=== PATIENT | female | born 1940 | race Caucasian/White ===

== ENCOUNTER 2016-07-11 16:32 | Inpatient (IN) | payer MEDICARE, OTHER ==
--- NOTE | ~2016-07-11 | CN ---
Consultation Report [facility] [address] [place]. [address] NAME: MIREYA JALLOH : 40 STATUS : ADM IN PAT#: [id number] AGE: 75 ADM/REG DATE : 07/11/16 MR#: [id number] REPORT SERV DATE: 07/12/16 DICTATED BY: DULCE ESPITIA DATE: 07/12/16 REPORT STATUS : Draft TRANSCRIBED BY: MODL DATE: 07/12/16 GI CONSULTATION DATE OF CONSULTATION: 07/12/2016 REASON FOR CONSULTATION: Evaluation and management of GI bleeding, acute blood loss anemia. HISTORY OF PRESENT ILLNESS: Ms. Jalloh is a 75-year-old female patient, known to Dr. Kian Benson in the outpatient setting, who presented to [facility] with a chief complaint of weakness and dizziness. She was found to have a hemoglobin of 5.6. She was just in the hospital at [facility] in April of this year. Hemoglobin on discharge there was 8.9. She was seen there by Dr. Joseph, and she underwent an upper endoscopy secondary to reports of epigastric abdominal pain. Findings on that exam showed nonbleeding esophageal ulcers, Billroth I anastomosis and the anastomosis was characterized by ulcerations, which he biopsied. She had multiple duodenal ulcers with clean base, which were biopsied. She was advanced to a soft diet and was subsequently discharged. She had called Dr. Benson's office last Sunday complaining of epigastric abdominal pain. He instructed her to decrease her diet and if her symptoms persisted over the weekend, to come in to the office. She did not come in, her symptoms persisted, she called yesterday, and he directed her to come to the emergency room for further evaluation. Hemoglobin was 5.6 on admission. Presently, she has been transfused two units of packed red blood cells. No recheck is available at this time. I have discussed with her we will plan on EGD as well as colonoscopy to be done tomorrow. Her last colonoscopy was actually done in 2014. Her EGD done in April showed active duodenitis with ulceration, no H pylori, no viral inclusions were seen on that pathology. Last colonoscopy was done in 12/2014. Findings on that exam showed a patent end-to-side ileocolonic anastomosis, otherwise normal exam. I have discussed with the patient we will plan on pursuing EGD as well as colonoscopy tomorrow. Risks, benefits, alternatives, and complications were detailed for her to include, but not limited to risk of bleeding, perforation, infection, reaction to medications, as well as cardiac and pulmonary side effects. She is agreeable to proceed. 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 PAST SURGICAL HISTORY: Gastrectomy, colon resection, back surgery, left knee surgery. SOCIAL HISTORY: Single. Lives independently. No alcohol. No current tobacco. No illicits. ALLERGIES: TO SULFA AND EPINEPHRINE. Consultation Report [place] [id number] [facility] [place]. [address] NAME: MIREYA JALLOH : 40 STATUS : ADM IN [facility]#: [id number] AGE: 75 ADM/REG DATE : 07/11/16 MR#: [id number] REPORT SERV DATE: 07/12/16 DICTATED BY: DULCE ESPITIA DATE: 07/12/16 REPORT STATUS : Draft TRANSCRIBED BY: JEROME DATE: 07/12/16 FAMILY HISTORY: Noncontributory from a GI standpoint. HOME MEDICATIONS: ProAir HFA, Klonopin, Benadryl, flecainide, Neurontin, Lidoderm patch, Pamelor, Protonix, and Carafate. REVIEW OF SYSTEMS: A 10-point review of systems has been obtained with pertinent positives being addressed in the history of present illness. PERTINENT LABORATORY DATA: Sodium 138, potassium 4.4, BUN is 21, creatinine 0.49. White count 4.3, hemoglobin 5.6, hematocrit 19.1, platelet count 252. PHYSICAL EXAMINATION: VITAL SIGNS: Temperature 98.1, pulse 101, respirations 17, and blood pressure 128/76. NEURO: Reveals an alert, thin, and frail-appearing female, resting in bed with no focal deficits. GENERAL: Cooperative, in no apparent distress. Awake, alert, and oriented x3. HEAD, EARS, EYES, NOSE, AND THROAT: Anicteric. Pupils equal, round, reactive to light and accommodation. Normocephalic and atraumatic. NECK: No JVD. No palpable nodes. CHEST: She has a right upper chest Port-A-Cath in use. LUNGS: Diminished throughout with normal respiratory effort exhibited. CARDIOVASCULAR SYSTEM: Irregular rate and rhythm. ABDOMEN: Mildly distended in the lower quadrant. She has epigastric tenderness to palpation without rebound or guarding. She also has a lower incisional hernia that reduces. EXTREMITIES: No edema. Normal distal pulses. SKIN: Warm, dry, and intact. ASSESSMENT: 1. Acute blood loss anemia with a history of chronic anemia, last noted hemoglobin in 04/2016 of 8.9. 2. Epigastric abdominal pain with a history of peptic ulcer disease, status post Billroth I. 3. Paroxysmal atrial fibrillation, no anticoagulants. PLAN: 1. Transfuse. 2. EGD and colonoscopy on 07/13. 3. Check a KUB. 4. Clear liquid diet and n.p.o. after midnight. Other recommendations to follow endoscopy. DG/MODL Consultation Report [address] [place]. [place]. [address] NAME: MIREYA JALLOH : 40 STATUS : ADM IN [facility]#: [id number] AGE: 75 ADM/REG DATE : 07/11/16 MR#: [id number] REPORT SERV DATE: 07/12/16 DICTATED BY: DULCE ESPITIA DATE: 07/12/16 REPORT STATUS : Draft TRANSCRIBED BY: JEROME DATE: 07/12/16 RG Anand / [id number] CC: Thiago De La Rosa DO
--- NOTE | ~2016-07-11 | EGD ---
EGD REPORT [facility] [address] [place]. [address] NAME: MIREYA JALLOH : 40 STATUS : ADM IN PAT#: [id number] AGE: 75 ADM/REG DATE : 07/11/16 MR#: [id number] REPORT SERV DATE: 07/14/16 DICTATED BY: DIAZ MARTINEZ DATE: 07/14/16 REPORT STATUS : Draft TRANSCRIBED BY: [facility] DATE: 07/14/16 Endoscopy Center Patient Name: Mireya Jalloh Date of : 1940 Attending MD: DIAZ MARTINEZ MD Procedure Date No Time: 07/14/2016 Procedure: Colonoscopy Indications: Iron deficiency anemia secondary to chronic blood loss Referring MD: Eliseo Knott MD Medicines: Monitored Anesthesia Care Complications: No immediate complications. Estimated blood loss: None. Procedure: Pre-Anesthesia Assessment: - ASA Grade Assessment: III - A patient with severe systemic disease. After I obtained informed consent, the scope was passed under direct vision. Throughout the procedure, the patient's blood pressure, pulse, and oxygen saturations were monitored continuously. The CF [id number] was introduced through the anus and advanced to the ileocolonic anastomosis. The colonoscopy was performed without difficulty. The patient tolerated the procedure well. The quality of the bowel preparation was good. Findings: The perianal and digital rectal examinations were normal. Pertinent negatives include normal sphincter tone and no palpable rectal lesions. The entire examined colon appeared normal on direct and retroflexion views. Impression: - The entire examined colon is normal on direct and retroflexion views. Recommendation: - Return patient to hospital [facility] for possible discharge same day. - Soft diet. Procedure Code(s): --- Professional --- 65635, Colonoscopy, flexible, proximal to splenic flexure; diagnostic, with or without collection of specimen(s) by brushing or washing, with or without colon decompression (separate procedure) Diagnosis Code(s): --- Professional --- D50.0, Iron deficiency anemia secondary to blood loss (chronic) EGD REPORT [address] [address] NAME: MIREYA JALLOH : 40 STATUS : ADM IN [facility]#: [id number] AGE: 75 ADM/REG DATE : 07/11/16 MR#: [id number] REPORT SERV DATE: 07/14/16 DICTATED BY: DIAZ MARTINEZ DATE: 07/14/16 REPORT STATUS : Draft TRANSCRIBED BY: [facility] DATE: 07/14/16 CPT copyright 2013 [employer]. All rights reserved. The codes documented in this report are preliminary and upon advertising sales consultant review may be revised to meet current compliance requirements. Diaz Martinez MD DIAZ MARTINEZ MD 07/14/2016 8:57 AM This report has been signed electronically. Number of Addenda: 0 Note Initiated On: 07/14/2016 8:20 AM Scope Withdrawal Time 0 hours 0 minutes 0 seconds
--- NOTE | ~2016-07-11 | DS ---
Discharge Summary [facility] [address] [place]. [address] NAME: MIREYA JALLOH : 40 STATUS : DIS IN PAT#: [id number] AGE: 75 ADM/REG DATE : 07/11/16 MR#: [id number] REPORT SERV DATE: 07/19/16 DICTATED BY: NADIYA LEON DATE: 07/19/16 REPORT STATUS : Draft TRANSCRIBED BY: MODL DATE: 07/19/16 ADMISSION DATE: 07/11/2016 DISCHARGE DATE: 07/19/2016 CONSULTANTS: Dr. White, Gastroenterology. Dr. Blood, Neurology. Dr. Bruno Zuluaga and Dr. Nemesio Rojas, Cardiology. DISCHARGE DIAGNOSES: 1. Upper gastrointestinal bleed due to esophagitis and jejunal ulcer. 2. Acute blood loss anemia. 3. Episode of wide-complex tachycardia. 4. Chronic atrial tachycardia. 5. Previous multiple peptic ulcers, treated with Billroth I anastomosis. 6. Chronic back pain. 7. Chronic constipation. 8. History of peripheral neuropathy with gait ataxia. HISTORY: This patient presented to the emergency room at [facility] complaining of weakness and some unsteadiness. She denied any falls. She is noted to be anemic with guaiac-positive stool. She was referred to our team for inpatient care. The patient was given some transfusion of packed red cells as her initial hemoglobin was 5.6. After the 2 units of packed red cells, her hemoglobin improved. It is stable at discharge at 8.5. She had a mild thrombocytopenia, which was felt to be due to consumption from her acute anemia and blood loss. Her iron studies in April showed a low serum iron of 32, a low percent iron saturation of 14, and a TIBC of 295. Her B12 level is at lower end of normal at 357. Currently, her folic acid was low at 3.8. Her ferritin is 21. The patient states she does not tolerate oral iron. We are recommending that she get her first dose of Ferrlecit iron replacement here and then follow up with her early intervention specialist, Dr. Troncoso for ongoing iron replacement intravenously as she has had in the past. She was seen by GI. She normally sees Dr. Benson in the office. During this hospitalization, his partner, Dr. White saw the patient on 07/13/2016, did an EGD showing grade C reflux esophagitis, Junel ulcer, a Billroth I anastomosis, a large amount of food in the stomach. Colonoscopy on that same date revealed a very poor preparation. Repeat EGD on 07/14/2016 showed grade C esophagitis, jejunal ulcer. Colonoscopy repeat showed normal findings. GI recommended Carafate, Protonix b.i.d., and follow up with them in the office. The patient has a history of atrial tachycardia. While she was here, she was having some wider complex atrial tachycardia. Cardiology, Dr. Zuluaga saw the patient, she was noted to have some nonsustained polymorphic ventricular tachycardic episodes. As a result, Cardiology decided to take her off flecainide, which they have had her on chronically. Echocardiogram, 07/13/2016, showed normal left ventricular size and ejection fraction of 55%, left atrium 3.9 cm, [id number] eccentric mitral regurgitation. Negative bubble study. Chest pain, cardiac enzymes were normal. Cardiology want her on a beta-brandie and they want to take her off any proarrhythmic drugs, such as nortriptyline and they want to decrease dosing of her gabapentin and they had marine engine machinist apprentice, Dr. Rojas see the Discharge Summary [address] [address] NAME: MIREYA JALLOH : 40 STATUS : DIS IN PAT#: [id number] AGE: 75 ADM/REG DATE : 07/11/16 MR#: [id number] REPORT SERV DATE: 07/19/16 DICTATED BY: NADIYA LEON DATE: 07/19/16 REPORT STATUS : Draft TRANSCRIBED BY: JEROME DATE: 07/19/16 patient. She had no clear-cut syncope, but weakness episodes probably related to her hypotension related to her anemia. He recommended staying off flecainide and nortriptyline and staying off Benadryl and reducing gabapentin and putting in a loop recorder. Loop recorder was implanted on 07/18/2016. He plans to see her back in the office in followup. The patient is ambulating up and down the yu using her walker. She is felt to benefit from outpatient PT. Case management is arranging that with PT facility close to her home. She already has a walker. HOME MEDICATIONS: Gabapentin reduced to 400 mg q.i.d., previously 600 mg q.i.d.; metoprolol 25 mg b.i.d.; Protonix 40 mg b.i.d.; Carafate 1 g a.c. and h.s.; Klonopin 0.5 mg daily p.r.n. anxiety; Tylenol 650 q.6 hours p.r.n. pain or fever; Gilmer 5/325 one t.i.d. p.r.n. chronic back pain; melatonin 6 mg at bedtime [id number]-[id number] p.r.n.; Senokot two daily p.r.n. She has a ProAir HFA that she uses p.r.n., folic acid 1 mg daily, vitamin B12 1000 mcg p.o. daily. She is to follow up with PCP, Eliseo Mckoy in one to two weeks. Linux Programmer, Dr. Bairon Troncoso for ongoing iron infusions. Cardiology/Wrapper Sorter, Dr. Rojas on 08/25/2016 at 1345 hours. GI, Dr. Benson in three to four weeks. I spent 38 minutes today with the patient and discharge planning. Pain management with [facility]. RSG/MODL Nadiya Leon M.D. / [id number] CC: Thiago Aplpe DO David Wendt, M.D. Sumeet Bhushan, M.D. Larry Schlabach, M.D.
--- NOTE | ~2016-07-11 | CN ---
Consultation Report [facility] [address] [place]. [address] NAME: MIREYA JALLOH : 40 STATUS : ADM IN PAT#: [id number] AGE: 75 ADM/REG DATE : 07/11/16 MR#: [id number] REPORT SERV DATE: 07/12/16 DICTATED BY: VIRGIE BLOOD DATE: 07/12/16 REPORT STATUS : Draft TRANSCRIBED BY: MODL DATE: 07/12/16 NEUROLOGICAL EVALUATION-CONSULTATION DATE OF CONSULTATION: 07/12/2016 REASON FOR EVALUATION: Episodes of falling, ataxia, possible stroke, history of GI bleeding. HISTORY OF PRESENT ILLNESS: This is a pleasant 75-year-old female with known history of multiple medical problems, which include history of severe anemia related to recurrent GI bleeding, past history of partial gastrectomy and past history of multiple lumbosacral and cervical spine surgeries, who was admitted with complaints of poor balance and recurrent episodes of falling. The patient stated that upon standing up, she appeared unsteady and was not able to catch her balance and had fallen. This occurred several times, unrelated to the change of body position while the patient was attempting to walk. Although the patient bruised her legs, she denied hitting her head or having any other problems related to her falling. The patient denied prior history of CVA or TIA. The patient stated that she has been in chronic pain secondary to lumbosacral spine multiple surgeries she had gone through in the past several years. The patient stated that she has lost weight and although her appetite was poor, she was not able to gain her weight back and has been feeling "run down." The patient has had difficulty sleeping as a result of having chronic pain. The patient's records indicate that she was hospitalized in April of this year with multiple ulcers of esophageal and duodenal, documented on endoscopy testing. The patient at that time has been taking nonsteroidal anti-inflammatory medications to control her pain. She was noted to have anemia, which was noted to be "multifactorial." During this admission, the patient's hemoglobin was 5.6, hematocrit 19.1, WBC count 4.3. The patient had a history of removal of infected hardware during one of the surgeries for her lumbosacral spine related problems. SOCIAL HISTORY: The patient denied smoking and denied use of alcohol. FAMILY HISTORY: Negative for history of stroke or any other neurological problems and no history of peripheral neuropathy. REVIEW OF SYSTEMS: The patient stated that she has had a generalized weakness, which affected her arms and legs. However, she did not feel that her falling was related to having weakness, especially involving her legs. The patient stated that she did not have any difficulty controlling her bowel or bladder. The rest of the review of systems was negative for abdominal pain. Negative for nausea, vomiting, diarrhea. There is no recent history of infections or exposure to anyone with infectious illnesses. No recent history of travel outside of this country. From neurological standpoint, as mentioned above, the patient denied prior history of CVA or TIA. Denied history of headaches. Denied double vision, difficulty with her chewing, swallowing or with her speech. Denied weakness and numbness, except for numbness involving her feet and generalized weakness. No focal complaints were elicited. Consultation Report [facility] [address] [facility] [place]. [address] NAME: MIREYA JALLOH : 40 STATUS : ADM [facility]#: [id number] AGE: 75 ADM/REG DATE : 07/11/16 MR#: [id number] REPORT SERV DATE: 07/12/16 DICTATED BY: VIRGIE BLOOD DATE: 07/12/16 REPORT STATUS : Draft TRANSCRIBED BY: JEROME DATE: 07/12/16 PHYSICAL EXAMINATION: GENERAL: The patient was pleasant and cooperative, did not appear in acute distress. Inspection of the patient's spine revealed severe kyphosis with area of bony prominence in the right midthoracic region, which as per the patient is related to her past surgeries. VITAL SIGNS: Show blood pressure of 132/80, pulse was 94, respirations 16, and temperature was 97.8. HEAD AND NECK: Showed her to be normocephalic. There was no evidence of trauma. Auscultation of the neck showed no evidence of bruits and no JVD, no thyromegaly or lymphadenopathy detected. Neck was supple. There was no Kernig or Brudzinski. Cervical range of motion was not impaired. CHEST: Symmetrical. LUNGS: Clear to auscultation. HEART: Regular S1 and S2. Borderline sinus tachycardia. ABDOMEN: Soft and nontender. Well-healing postsurgical scar was noted in the left lower abdomen, some redness and subacute healing noted. EXTREMITIES: Showed no clubbing or cyanosis. There was no peripheral edema. SKIN: Showed numerous ecchymotic areas in the tibial regions bilaterally as per the patient secondary to her recent falling. Peripheral pulses were intact. NEUROLOGIC: The patient was alert and oriented to self, time, and place. Her mental status exam was entirely normal. Speech was fluent. There was no evidence of aphasia or dysarthria. Thought content and mood appeared appropriate, although the patient appears slightly anxious. She was cooperative and did not appear in acute distress. Cranial nerve examination II through XII: Visual juarez on confrontation were intact. Funduscopic exam showed no evidence of papilledema, hemorrhages, or exudates. Extraocular movements were full. There was no nystagmus. No limitation of upward or downward gaze was noted. Facial sensation, muscles of mastication, muscles of facial expression showed no evidence of asymmetry or weakness. Lower cranial nerves were intact. Tongue was midline. No atrophy or fibrillations were noted. Palate elevated symmetrically. Sternocleidomastoid and trapezius muscles were normal. Shoulder shrug was normal. Motor: Muscle bulk was decreased diffusely, although no significant atrophy was noted. No fasciculations were observed. Strength appeared intact, 5-/5 throughout. Deep tendon reflexes were 1/2 in the upper extremities, 1/2 in the left knee and 0/2 in the right knee, 0/2 at both ankles. Sensory exam showed stocking distribution of decreased vibration, pinprick, and light touch in both lower extremities symmetrically. No sensory level was noted under the torso. Romberg test was positive, the patient was falling backwards. Cerebellar exam on finger-to- nose showed very minimal tremor, which appeared to be essential tremor, left slightly greater than the right on dciqmf-ol-yymn, and a definite ataxia noted on [id number]-ew-[id number]. The patient's gait was wide based, appeared to be antalgic, and difficult to test for ataxia as the patient did not perform more than few steps and returned back to bed. She required two people to help her with ambulation. LABORATORY STUDIES: Sodium 138, potassium 4.4, BUN 21, creatinine 0.94, glucose 110, calcium 7.9, magnesium 1.8. WBC count 4.3, hemoglobin 5.6, hematocrit 19.1, platelet count 252,000. IMPRESSION: Consultation Report [facility] [address] [place]. [address] NAME: MIREYA JALLOH : 40 STATUS : ADM IN PAT#: [id number] AGE: 75 ADM/REG DATE : 07/11/16 MR#: [id number] REPORT SERV DATE: 07/12/16 DICTATED BY: VIRGIE BLOOD DATE: 07/12/16 REPORT STATUS : Draft TRANSCRIBED BY: MODL DATE: 07/12/16 1. Recurrent episodes of falling, most likely multifactorial, secondary to possible orthostatic hypotension related to the patient's severe anemia and blood loss. The factor contributing to the patient's episodes of falling is underlying peripheral neuropathy, which appears to be mainly sensory symmetrical peripheral neuropathy affecting her lower extremities and affecting the patient's balance. 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 Rule out vitamin B12 and folate deficiency. The patient has history of partial gastrectomy, which may be responsible for her malabsorption of vitamins. 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 2. History of paroxysmal atrial fibrillation. Rule out recurrent atrial fibrillation causing episodes of hypotension and falling. 3. The patient has increased risk of a stroke. 4. History of gastric and duodenal ulcers. 5. Persistent anemia. Recommend for her to obtain laboratory studies, serum vitamin B12 and folate level and supplement the deficiency. If the patient's B12 level is below 400, would consider it to be low for this patient. 1 mg IM daily while the patient is here of B12 and 1 mg of folate p.o. daily until the patient is released to go home. Continue folic acid p.o. supplement and then weekly, transferring to monthly IM B12 supplement, would recommend to continue for life. If the patient's symptoms worsen or continue, would obtain MRI of the brain and cervical spine, brain to rule out any strokes affecting posterior circulation and MRI of the cervical spine to rule out spinal stenosis which may contribute to the patient's leg weakness, poor balance, and subsequent episodes of falling. The patient has increased risk of falling and injury. I would recommend to address this prior to her discharge from the hospital. PT and OT to evaluate and treat the patient. Continue PT on outpatient basis. Pain management for chronic pain. Consider adding Neurontin if the patient has not been on it previously and to help manage her chronic pain. At present, would hold the patient's aspirin or any other anticoagulation until her anemia is corrected. The patient, however, may need anticoagulation if she has recurrent atrial fibrillation. Thank you for allowing us to participate in this patient's care. MARSHALL/JEROME Virgie Blood MD / [id number] CC: Thiago De La Rosa DO
--- NOTE | ~2016-07-11 | EGD ---
EGD REPORT [facility] [address] [place]. [address] NAME: MIREYA JALLOH : 40 STATUS : ADM IN PAT#: [id number] AGE: 75 ADM/REG DATE : 07/11/16 MR#: [id number] REPORT SERV DATE: 07/13/16 DICTATED BY: DIAZ MARTINEZ DATE: 07/13/16 REPORT STATUS : Draft TRANSCRIBED BY: [facility] DATE: 07/13/16 Endoscopy Center Patient Name: Mireya Jalloh Date of : 1940 Attending MD: DIAZ MARTINEZ MD Procedure Date No Time: 07/13/2016 Procedure: Colonoscopy Indications: Anemia Referring MD: Eliseo Knott MD Medicines: Monitored Anesthesia Care Complications: No immediate complications. Estimated blood loss: None. Procedure: Pre-Anesthesia Assessment: - ASA Grade Assessment: III - A patient with severe systemic disease. After I obtained informed consent, the scope was passed under direct vision. Throughout the procedure, the patient's blood pressure, pulse, and oxygen saturations were monitored continuously. The CF [id number] was introduced through the anus with the intention of advancing to the cecum. The scope was advanced to the rectum before the procedure was aborted. Medications were given. The colonoscopy was technically difficult and complex due to inadequate bowel prep. The patient tolerated the procedure well. The quality of the bowel preparation was unsatisfactory. Findings: Perianal examination was normal. Copious quantities of solid stool was found in the rectum, precluding visualization. The procedure was aborted as it appeared that the patient had not completed the bowel prep. Impression: - Preparation of the colon was unsatisfactory. - Stool in the rectum. Recommendation: - Repeat colonoscopy tomorrow because the bowel preparation was poor. Procedure Code(s): --- Professional --- 01245, 53, Colonoscopy, flexible, proximal to splenic flexure; diagnostic, with or without collection of specimen(s) by brushing or washing, with or without colon decompression (separate procedure) Diagnosis Code(s): --- Professional --- EGD REPORT [facility] [address] [place]. [address] NAME: MIREYA JALLOH : [birth year] STATUS : ADM IN [facility]#: [id number] AGE: 75 ADM/REG DATE : 07/11/16 MR#: [id number] REPORT SERV DATE: 07/13/16 DICTATED BY: DIAZ MARTINEZ DATE: 07/13/16 REPORT STATUS : Draft TRANSCRIBED BY: [employer] DATE: 07/13/16 D64.9, Anemia, unspecified CPT copyright 2013 [employer]. All rights reserved. The codes documented in this report are preliminary and upon walking dragline operator review may be revised to meet current compliance requirements. Diaz Martinez MD DIAZ MARTINEZ MD 07/13/2016 9:46 AM This report has been signed electronically. Number of Addenda: 0 Note Initiated On: 07/13/2016 9:03 AM Scope Withdrawal Time 0 hours 0 minutes 0 seconds [address] [id number]
--- NOTE | ~2016-07-11 | EGD ---
EGD REPORT [facility] [address] [place]. [address] NAME: MIREYA JALLOH : [birth year] STATUS : ADM IN PAT#: [id number] AGE: 75 ADM/REG DATE : 07/11/16 MR#: [id number] REPORT SERV DATE: 07/13/16 DICTATED BY: DIAZ MARTINEZ DATE: 07/13/16 REPORT STATUS : Draft TRANSCRIBED BY: [facility] DATE: 07/13/16 Endoscopy Center Patient Name: Mireya Jalloh Date of : 1940 Attending MD: DIAZ MARTINEZ MD Procedure Date No Time: 07/13/2016 Procedure: Upper GI endoscopy Indications: Iron deficiency anemia secondary to chronic blood loss Referring MD: Eliseo Knott MD Medicines: Monitored Anesthesia Care Complications: No immediate complications. Estimated blood loss: None. Procedure: Pre-Anesthesia Assessment: - ASA Grade Assessment: III - A patient with severe systemic disease. After obtaining informed consent, the endoscope was passed under direct vision. Throughout the procedure, the patient's blood pressure, pulse, and oxygen saturations were monitored continuously. The GIF H190 [id number] was introduced through the mouth, and advanced to the second part of duodenum. The upper GI endoscopy was accomplished without difficulty. The patient tolerated the procedure well. Findings: LA Grade C (one or more mucosal breaks continuous between tops of 2 or more mucosal folds, less than 75% circumference) esophagitis with no bleeding was found in the entire esophagus. Evidence of a Billroth I anastomosis was found in the gastric antrum. The anastomosis was characterized by ulceration. Few non-bleeding superficial ulcers with no stigmata of bleeding were found distal to the gastrojejunal anastomosis. The largest lesion was 6 mm in largest dimension. A large amount of food (residue) was found in the gastric fundus. The exam was otherwise without abnormality. Impression: - LA Grade C reflux esophagitis. - A Billroth I anastomosis was found, anastomosis characterized by ulceration. - Jejunal ulcer with clean base. - A large amount of food (residue) in the stomach. - The examination was otherwise normal. Recommendation: - Perform a colonoscopy today. - Protonix BID - Zantac [facility] EGD REPORT [address] [address] NAME: MIREYA JALLOH : [birth year] STATUS : ADM IN [facility]#: [id number] AGE: 75 ADM/REG DATE : 07/11/16 MR#: [id number] REPORT SERV DATE: 07/13/16 DICTATED BY: DIAZ MARTINEZ DATE: 07/13/16 REPORT STATUS : Draft TRANSCRIBED BY: [employer] DATE: 07/13/16 - Carafate QID Procedure Code(s): --- Professional --- 48669, Esophagogastroduodenoscopy, flexible, transoral; diagnostic, including collection of specimen(s) by brushing or washing, when performed (separate procedure) Diagnosis Code(s): --- Professional --- K21.0, Gastro-esophageal reflux disease with esophagitis K28.9, Gastrojejunal ulcer, unspecified as acute or chronic, without hemorrhage or perforation D50.0, Iron deficiency anemia secondary to blood loss (chronic) CPT copyright 2013 [employer]. All rights reserved. The codes documented in this report are preliminary and upon call out operator review may be revised to meet current compliance requirements. Diaz Martinez MD DIAZ MARTINEZ MD 07/13/2016 9:36 AM This report has been signed electronically. Number of Addenda: 0 Note Initiated On: 07/13/2016 9:02 AM Scope Withdrawal Time 0 hours 0 minutes 0 seconds [address] [place] [address]
--- NOTE | ~2016-07-11 | EGD ---
EGD REPORT [facility] [address] [place]. [address] NAME: MIREYA JALLOH : 40 STATUS : ADM IN PAT#: [id number] AGE: 75 ADM/REG DATE : 07/11/16 MR#: [id number] REPORT SERV DATE: 07/14/16 DICTATED BY: DIAZ MARTINEZ DATE: 07/14/16 REPORT STATUS : Draft [facility]ANSCRIBED BY: [facility] DATE: 07/14/16 Endoscopy Center Patient Name: Mireya Jalloh Date of : 1940 Attending MD: DIAZ MARTINEZ MD Procedure Date No Time: 07/13/2016 Procedure: Upper GI endoscopy Indications: Iron deficiency anemia secondary to chronic blood loss Referring MD: Eliseo Knott MD Medicines: Monitored Anesthesia Care Complications: No immediate complications. Estimated blood loss: None. Procedure: Pre-Anesthesia Assessment: - ASA Grade Assessment: III - A patient with severe systemic disease. After obtaining informed consent, the endoscope was passed under direct vision. Throughout the procedure, the patient's blood pressure, pulse, and oxygen saturations were monitored continuously. The GIF H190 [id number] was introduced through the mouth, and advanced to the second part of duodenum. The upper GI endoscopy was accomplished without difficulty. The patient tolerated the procedure well. Findings: LA Grade C (one or more mucosal breaks continuous between tops of 2 or more mucosal folds, less than 75% circumference) esophagitis with no bleeding was found in the entire esophagus. Evidence of a Billroth I anastomosis was found in the gastric antrum. The anastomosis was characterized by ulceration. Few non-bleeding superficial ulcers with no stigmata of bleeding were found distal to the gastrojejunal anastomosis. The largest lesion was 6 mm in largest dimension. A large amount of food (residue) was found in the gastric fundus. The exam was otherwise without abnormality. Impression: - LA Grade C reflux esophagitis. - A Billroth I anastomosis was found, anastomosis characterized by ulceration. - Jejunal ulcer with clean base. - A large amount of food (residue) in the stomach. - The examination was otherwise normal. Recommendation: - Perform a colonoscopy today. - Protonix BID - Zantac [facility] EGD REPORT [address] [address] NAME: MIREYA JALLOH : [birth year] STATUS : ADM IN [facility]#: [id number] AGE: 75 ADM/REG DATE : 07/11/16 MR#: [id number] REPORT SERV DATE: 07/14/16 DICTATED BY: DIAZ MARTINEZ DATE: 07/14/16 REPORT STATUS : Draft TRANSCRIBED BY: [email or web address] DATE: 07/14/16 - Carafate QID Procedure Code(s): --- Professional --- 00727, Esophagogastroduodenoscopy, flexible, transoral; diagnostic, including collection of specimen(s) by brushing or washing, when performed (separate procedure) Diagnosis Code(s): --- Professional --- K21.0, Gastro-esophageal reflux disease with esophagitis K28.9, Gastrojejunal ulcer, unspecified as acute or chronic, without hemorrhage or perforation D50.0, Iron deficiency anemia secondary to blood loss (chronic) CPT copyright 2013 [employer]. All rights reserved. The codes documented in this report are preliminary and upon staking press operator review may be revised to meet current compliance requirements. Diaz Martinez MD DIAZ MARTINEZ MD 07/13/2016 9:36 AM This report has been signed electronically. Number of Addenda: 0 Note Initiated On: 07/13/2016 9:02 AM Scope Withdrawal Time 0 hours 0 minutes 0 seconds [address] [place] [address]
--- NOTE | ~2016-07-11 | HP ---
History And Physical [place] [address] [facility] [place]. [address] NAME: MIREYA JALLOH : [birth year] STATUS : ADM IN [facility]#: [id number] AGE: 75 ADM/REG DATE : 07/11/16 MR#: [id number] REPORT SERV DATE: 07/11/16 DICTATED BY: JARVIS DAS DATE: 07/11/16 REPORT STATUS : Draft TRANSCRIBED BY: MODL DATE: 07/11/16 DATE OF ADMISSION: 07/11/2016 CHIEF COMPLAINT: Weakness and dizziness. HISTORY OF PRESENT ILLNESS: The patient is a 75-year-old female with past medical history of peptic ulcer disease with multiple admissions for anemia, acute on chronic blood loss anemia secondary to bleeding ulcers, has history of chronic pain dependence on narcotics but does not have any currently, is to have new appointment reported tomorrow but today in acute setting, was complaining of increased dizziness and weakness and in addition was incidentally found to have mild changing of her speech with occasional slurring. Symptoms occurred this morning, unable to determine which time. Symptoms have been intermittent as the patient kind of somewhat goes on and off, has been chronically weak. Symptoms are mild to moderate with no pain or radiating symptoms associated with no headaches, no nausea, no fever, chills, diarrhea. No cough, wheezing, swelling or redness. Did have occasional bruises on legs but denies any head fall or head trauma. There are no worsening symptoms or relieving symptoms. The patient does have occasional weakness at this time and is notably pale, was positive fecal occult blood on arrival, reports that she does take Tylenol on a daily basis but denies any current NSAIDs although she has had history of NSAID use. REVIEW OF SYSTEMS: CONSTITUTIONAL: Noted for dizziness. No chills but generalized weakness. EYES: Does have occasional change in vision but no pain or diplopia. ENT: No congestion or sore throat. NEURO: Did have mild speech changes and weakness but no headache or confusion. SKIN: No rashes but does have bruising where she hit her knee or her shins bilaterally. RESPIRATORY: No shortness of breath or dyspnea on exertion. CV: No chest pain or palpitations. GI: No nausea or vomiting. : No dysuria or hematuria. MUSCULOSKELETAL: No myalgias or arthralgias. ENDO: Increased fatigue, but no polyuria. HEME: No bleeding, does have occasional bruising on lower extremities. IMMUNOLOGIC: No rhinorrhea. PSYCH: No anxiety or confusion. 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 PAST SURGICAL HISTORY: Gastrectomy for GI bleed, colon resection, multiple back surgeries, left knee. FAMILY HISTORY: Of hypertension and coronary artery disease. History And Physical [address] [address] NAME: MIREYA JALLOH : 40 STATUS : ADM IN [facility]#: [id number] AGE: 75 ADM/REG DATE : 07/11/16 MR#: [id number] REPORT SERV DATE: 07/11/16 DICTATED BY: JARVIS DAS DATE: 07/11/16 REPORT STATUS : Draft TRANSCRIBED BY: JEROME DATE: 07/11/16 SOCIAL HISTORY: Single, reports coming from home, quit smoking in 90s, quit alcohol last year but reports that she used to drink 1 glass of wine per day and does have wine glass bottle at hand in her purse. Denies any illegal drugs. EKG; atrial fibrillation with RVR but rate of 105, QTc 549, nonspecific intraventricular block. ALLERGIES: SULFA AND EPINEPHRINE. HOME MEDICATIONS: Albuterol, Klonopin, Benadryl, flecainide, Neurontin, lidocaine, nortriptyline, Protonix, and Carafate. PHYSICAL EXAMINATION: VITAL SIGNS: The patient's blood pressure 93/62, temperature 97.4, pulse 99 to 105, respirations 18, O2 saturations 99% on room air. GENERAL: Elderly frail pale but no acute distress. Smiling. EYES: Symmetrical dilated. No nystagmus. ENT: Nares patent. Tongue midline. Dry mucous membranes. RESPIRATORY: Clear to auscultation. No wheezes, rales. CV: Irregularly irregular. No rubs or gallops. No JVD, no pedal edema. GI: Soft, nontender, nondistended. Mild hernia defect. : Deferred. MUSCULOSKELETAL: Moves all extremities x4. SKIN: Warm, dry with bruising on shins bilaterally. LYMPH: No cervical or supraclavicular lymphadenopathy. HEME: Bruising on shins. No bruising seen on head on scalp exam or tenderness. NEURO: Alert to person, place, situation. Does have mild confusion or difficulty with dysphagia, upper extremities 5/5 lower extremities approximately 4/5. Finger to nose when patient concentrates is still intact, however, patient slightly tired at times unless when it comes to talking about her pain medications and sleeping medications. The patient fairly interactive with this and when discussing about her wine glass. PSYCH: Appropriate mood and affect. Currently pleasant. LABORATORY DATA: Urinalysis; small leuk esterase, procalcitonin negative. BUN creatinine 21, 2.49. LFTs; AST ALT within normal limits. Alkaline phosphatase 157. Portable chest stable. Lactate 0.9. Brain without contrast, stable atrophy, no acute infarct or atrophy. CBC: WBC count 4.3, H and H 5.6 and 19.1 down from 8.9 and 29.4, platelets 252. ASSESSMENT AND PLAN: 1. Symptomatic anemia. 2. Subacute gastrointestinal bleed. 3. Possible stroke. History And Physical [address] [address] NAME: MIREYA JALLOH : [birth year] STATUS : ADM IN [facility]#: [id number] AGE: 75 ADM/REG DATE : 07/11/16 MR#: [id number] REPORT SERV DATE: 07/11/16 DICTATED BY: JARVIS DAS DATE: 07/11/16 REPORT STATUS : Draft TRANSCRIBED BY: MODL DATE: 07/11/16 4. Chronic debility. 5. Chronic benzo use. 6. Prior narcotic dependence. 7. Paroxysmal atrial fibrillation. PLAN: 1. For symptomatic anemia, two units PRBCs ordered and to be transfused in the emergency room. PPI drip. 2. History of multiple ulcers. We will ask GI for further evaluation. She has had GI and surgical evaluation in the past. No ev blood loss per patient but has had what appears to be subacute chronic bleed. 3. Acute gastrointestinal bleed. PPI drip. Transfuse PRBCs. 4. History of ulcers. We will continue to treat supportively. Monitor H and H, and vital signs currently stable with mild tachycardia, atrial fibrillation pattern. 5. Possible stroke, order set initiated, non tPA with active bleed and no definitive start time with dysphagia, additional weakness in lower extremity, however, very difficult due to patient's chronic debility status to differentiate older versus new changes as the patient does have atrophy of muscle groups but patient does have symmetrical smile, tongue midline, no beating nystagmus, and symmetrical pupil response, at this time symmetrical strength in hands and lower extremities although decreased strength in lower extremities. [id number] still within normal limits. 6. Chronic benzo use. Low-dose benzo at night. Continue to prevent any types of withdrawals. 7. Prior narcotic dependence. Has been discharged from Pain Management in the past. Appears to be in transition to new Pain Management Center. We will hold for blood pressure monitoring and try to provide adequate pain medication as possible with holding parameters. 8. Paroxysmal atrial fibrillation seen in emergency room, rate controlled, not on anticoagulation secondary to symptomatic anemia. IV blood to be given and repeat EKG in a.m., optimize lytes, and optimize H and H. No current chest pain. 9. Guarded prognosis secondary to chronic debility and underlying disease process, low threshold for advancing to IMCU or ICU if change in vital signs or mental status. DDN/MODL Jarvis Das MD / [id number] CC: Thiago De La Rosa DO
--- NOTE | ~2016-07-11 | IDS ---
Interim Discharge Summary [facility] [address] [address] NAME: MIREYA JALLOH : [birth year] STATUS : ADM IN PAT#: [id number] AGE: 75 ADM/REG DATE : 07/11/16 MR#: [id number] REPORT SERV DATE: 07/17/16 DICTATED BY: TENA NEGRON DATE: 07/17/16 REPORT STATUS : Draft TRANSCRIBED BY: MODL DATE: 07/17/16 ADMISSION DATE: 07/11/2016 DISCHARGE DATE: DIAGNOSES: So far include the followin. GI bleed in a patient with multiple comorbidities-this has resolved. The patient is status post EGD that showed a nonbleeding jejunal ulcer and also had to have colonoscopy two times, the first time the patient had a poor prep and had to undergo colonoscopy again but a colonoscopy did not show any evidence of any acute bleed or any abnormality whatsoever. This has resolved at this time. Her other issues include multifocal nonsustained ventricular tachycardia for which we are consulting Cardiology and also diagnostic sales specialist, Dr. Zuluaga and Dr. Rojas. They are in the process of doing further testing/adjusting her medications. 2. Chronic hypotension and tendency towards tachycardia and low blood pressure-the patient has a normal ejection fraction with a LVEF of 55%. Hence, the hypotension is probably because of dehydration and poor oral intake. 3. Diagnosis is as mentioned above, nonsustained multifocal ventricular tachycardia for which she is being consulted by Dr. Rojas. 4. Episodes of syncope. 5. Neurology has consulted on her and they have no further suggestions on this patient. 6. History of Billroth-I partial gastrectomy for peptic ulcer disease in the past. 7. Other diagnoses also include narcotic dependence and benzodiazepine dependence. BRIEF HOSPITAL COURSE: The patient is a 75-year-old white female patient, who was basically admitted with dizziness and syncope. As her hemoglobin and hematocrit were found to be low and she was essentially admitted with the diagnosis of subacute GI bleed as she had blood in stool off and on. Because of her multiple comorbidities, she was admitted and a GI consult was obtained and also Neurology consult was obtained because of the near syncope. The patient did undergo blood transfusion and also did undergo upper endoscopy. Upper endoscopy did not show any active bleed but showed a nonbleeding jejunal ulcer. The patient underwent a colonoscopy 2 times and the 2nd time colonoscopy was completely normal. The 1st time the patient had a poor prep and the colon could not be well visualized. Anyway, the GI bleed resolved and with transfusions, her hemoglobin and hematocrit have come up and she has been stabilized. The issues now however have been tachycardia, a few episodes of nonsustained multifocal ventricular tachycardia and also low blood pressure. The patient has been on flecainide through her senior technical recruiter as an outpatient. Inpatient cardiology consult and EP consult have been obtained and their suggestion is to continue the flecainide but at a lower dose. Further recommendations will be forthcoming by Dr. Rojas, please see his note. Consults on this case include Neurology consultation who has signed off on this patient and a Cardiology consultation by Dr. Zuluaga and Dr. Rojas, and Dr. Rojas continues to follow this patient. After final recommendations have come forth by Dr. Rojas regarding her medications for this nonsustained multifocal ventricular tachycardia and her blood pressure stabilizes, the plan is to send her to inpatient rehab and the patient's preference is [facility]. Interim Discharge Summary [address] [address] NAME: MIREYA JALLOH : 40 STATUS : ADM IN [facility]#: [id number] AGE: 75 ADM/REG DATE : 07/11/16 MR#: [id number] REPORT SERV DATE: 07/17/16 DICTATED BY: TENA NEGRON DATE: 07/17/16 REPORT STATUS : Draft TRANSCRIBED BY: JEROME DATE: 07/17/16 BRYANT/JEROME Tena Negron M.D. / [id number] CC: Thiago De La Rosa DO
--- NOTE | ~2016-07-11 | CN ---
Consultation Report [facility] [address] [place]. [address] NAME: MIREYA JALLOH : 40 STATUS : ADM IN PAT#: [id number] AGE: 75 ADM/REG DATE : 07/11/16 MR#: [id number] REPORT SERV DATE: 07/17/16 DICTATED BY: BRUNO MCGRAW DATE: 07/17/16 REPORT STATUS : Draft TRANSCRIBED BY: MODL DATE: 07/17/16 CONSULTATION DATE OF CONSULTATION: 07/17/2016 PRIMARY STEM CRUSHER: Nemesio Rojas M.D. HISTORY OF PRESENT ILLNESS: Ms. Jalloh is a pleasant 75-year-old female with a history of paroxysmal atrial tachycardia, on flecainide; COPD; anemia; GI bleed, status post Billroth-I for history of gastric ulcers, now with a jejunal ulcer causing a GI bleed for which she was admitted. She came in having fallen multiple times last week, but not losing consciousness, in the setting of an active GI bleed with profound anemia. This has been fully treated, however, during the patient's hospital stay here, she has had arrhythmias noted on telemetry prompting consultation today. In speaking with the patient, she follows with Dr. Rojas, and last saw him approximately one year ago, at which point in time, she was titrated up on flecainide. She did well with this medication and had no issues of palpitations going forward. She currently denies having any chest pains, pressures, palpitations, dizziness, or loss of consciousness. Outside of falling 4 times in the past week in the setting of an active GI bleed, she has not had any other episodes of falling. She has not lost consciousness at all with any of her falling episodes either. Notably, her cardiac enzymes are also negative during this hospital stay. ALLERGIES: SULFA DRUGS. PAST MEDICAL HISTORY: As above. SOCIAL HISTORY: The patient lives alone. Denies abusing alcohol, doing drugs or smoking. FAMILY HISTORY: Noncontributory for heart disease. REVIEW OF SYSTEMS: As above, all other systems otherwise negative. HOME MEDICATIONS: 1. Albuterol. 2. Klonopin. 3. Benadryl. 4. Flecainide 100 mg p.o. daily. 5. Neurontin. 6. Lidocaine. 7. Nortriptyline. 8. Protonix. 9. Sucralfate. Consultation Report [facility] [address] [place]. [address] NAME: MIREYA JALLOH : 40 STATUS : ADM IN PAT#: [id number] AGE: 75 ADM/REG DATE : 07/11/16 MR#: [id number] REPORT SERV DATE: 07/17/16 DICTATED BY: BRUNO MCGRAW DATE: 07/17/16 REPORT STATUS : Draft TRANSCRIBED BY: JEROME DATE: 07/17/16 PHYSICAL EXAMINATION: VITAL SIGNS: Blood pressure has been low 73/53, but ranging from the 80s to 100s systolic over 50 to 60; pulse 86, sinus; temperature 97.6. NEURO: Awake, alert and oriented x3; no focal deficits, appropriate mood. HEENT: Moist mucous membranes, anicteric sclerae, no nasal discharge. NECK: No JVD, no carotid bruit. LUNGS: Clear to auscultation bilaterally, no wheezes, rales or rhonchi. CV: Regular rhythm, normal S1/S2, no murmurs, rubs or gallops. ABD: Soft, non-tender, non-distended, no rebound or guarding. EXT: No pitting edema, normal distal pulses. SKIN: Right chest port noted with erythema (mild). Otherwise, no obvious active rash is notable. PERTINENT TEST FINDINGS: Potassium 3.9, creatinine 0.67, magnesium 1.8, white blood cell count 5.1, hemoglobin 9.2, troponins less than 0.02 x3. Echocardiogram from July 13 shows an EF of 55%. Normal RV function and [id number] eccentric MR. Review of telemetry in the past one to two days shows evidence of atrial ectopic beats, paroxysmal atrial tachycardia as well as sinus tachycardia and nonsustained polymorphic VT. Review of recorded strips from last week, which are no longer on telemetry, shows several episodes of atrial tach. A 12-lead EKG from July 13 demonstrates a wide-complex tachycardia with left axis deviation and a left bundle branch block morphology. This may represent atrial tach with aberrant conduction down the left bundle versus VT. There is no obvious evidence of AV dissociation. There are no fusion beats. There is no concordance across the precordial leads, and the RS maximum is approximately 100 milliseconds, if not, less; collectively suggestive of atrial tach with aberrant conduction and not VT. IMPRESSION AND PLAN: Ms. Jalloh is a 75-year-old woman with a history of paroxysmal atrial tachycardia, on flecainide, who was admitted with a gastrointestinal bleed that has now been fully treated with recurrent atrial tachycardia as well as atrial tachycardia with aberrant conduction apparently on EKG from July 13. She did not have any symptoms during the episode that was recorded on July 13, nor does she have symptoms otherwise with regard to her atrial arrhythmias. She denies having any chest pains, pressures, palpitations, dizziness, or loss of consciousness over the past few days. I agree with down-titration of her flecainide in light of her nonsustained polymorphic ventricular tachycardia as this drug may itself be proarrhythmic. In addition, it will be helpful to check and replete electrolytes as appropriate. Her echocardiogram shows normal biventricular function, her cardiac enzymes are negative x3 sets, and she has no anginal equivalents as far as I can tell, thereby making an ischemic cause highly unlikely. Finally, on careful review of her 12-lead EKG, as above, it seems to me that she has atrial tach with aberrant conduction, as per Brugada criteria, she does not fulfil any definitive VT findings (she has no AV dissociation, no fusion beats, no concordance, and only a borderline R to S interval time in leads V5 and V6, but otherwise clearly less than 100 milliseconds). Taken together, these findings along with the fact that she was asymptomatic likely support the fact that this was a benign arrhythmia and probably atrial tach with aberrant conduction given her history. Therefore, I agree with the addition of a beta-brandie as tolerated to help suppress her Consultation Report [facility] [id number] [place]. [address] NAME: MIREYA JALLOH : 40 STATUS : ADM IN PAT#: [id number] AGE: 75 ADM/REG DATE : 07/11/16 MR#: [id number] REPORT SERV DATE: 07/17/16 DICTATED BY: BRUNO MCGRAW DATE: 07/17/16 REPORT STATUS : Draft TRANSCRIBED BY: JEROME DATE: 07/17/16 atrial arrhythmias as well as down-titration of flecainide as above given polymorphic nonsustained ventricular tachycardia. VR/MODL Bruno Mcgraw MD / [id number] CC: Thiago De La Rosa DO
--- NOTE | ~2016-07-11 | CN ---
Consultation Report [facility] [address] [place]. [address] NAME: MIREYA JALLOH : 40 STATUS : ADM IN PAT#: [id number] AGE: 75 ADM/REG DATE : 07/11/16 MR#: [id number] REPORT SERV DATE: 07/17/16 DICTATED BY: BETO ROJAS DATE: 07/17/16 REPORT STATUS : Draft TRANSCRIBED BY: MODL DATE: 07/17/16 EP CONSULTATION DATE OF CONSULTATION: INDICATION: Polymorphic VT and wide-complex tachycardia. HISTORY OF PRESENT ILLNESS: The patient is a 75-year-old white female, who I follow for paroxysmal atrial tachycardia, for which she has been on flecainide 100 mg b.i.d. She has a history of COPD, previous Billroth I surgery for gastric ulcers and previous history of jejunal ulcers, causing GI bleed. The week prior to admission, she had four episodes of loss of consciousness. These occurred abruptly while she was sitting. She had no warning or premonition. She states that she found herself on the floor, wondering what had happened to her. On her admission, her hemoglobin was 9.2, but her blood pressure was 73/53. She underwent an upper GI endoscopy. She had grade C reflux esophagitis, Billroth I anastomosis characterized by ulceration with a clean base and a large amount of food in the stomach. She was placed on Protonix, Zantac, and Carafate. The GI findings are consistent with the type of discomfort she had been experiencing. In addition to the above, she had been noticing more fluttering in her chest. On 07/16/2016, she had several runs of polymorphic ventricular tachycardia. She also had a more sustained run of wide-complex tachycardia. The latter is likely an atrial flutter with 2:1 conduction and a left bundle-branch block pattern. However, the polymorphic events are of more concern. Her echocardiogram from 07/13/2016 showed normal ejection fraction and moderate eccentric mitral regurgitation. Her baseline ECG from 07/12 showed low-voltage QRS in limb leads and incomplete left bundle-branch block in acute interval at 509 milliseconds. SOCIAL HISTORY: Lives alone. Negative for alcohol or tobacco use. FAMILY HISTORY: Negative for cardiac disease or sudden . CURRENT HOME MEDICATIONS: At the time of admission, albuterol MDI two puffs p.r.n., clonazepam 0.5 p.r.n., diphenhydramine 25 at h.s., flecainide 100 b.i.d., gabapentin 600 four times a day, lidocaine one patch daily, nortriptyline 75 at h.s., Protonix 40 a day, sucralfate 1 g before meals at h.s. ALLERGIES OR INTOLERANCES: Sulfa-containing antibiotics and epinephrine. PAST MEDICAL HISTORY/REVIEW OF SYSTEMS: She has a previous history of alcohol use and anemia with previous GI bleeds. She has chronic low back pain, underlying COPD, and had an episode of encephalopathy likely secondary to narcotic overuse and hypoxemia. 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 She reports a previous HI; Consultation Report [address] [place]. [address] NAME: MIREYA JALLOH : 40 STATUS : ADM IN PAT#: [id number] AGE: 75 ADM/REG DATE : 07/11/16 MR#: [id number] REPORT SERV DATE: 07/17/16 DICTATED BY: BETO ROJAS DATE: 07/17/16 REPORT STATUS : Draft TRANSCRIBED BY: JEROME DATE: 07/17/16 however, her arteriogram has not shown fixed coronary disease. She has had some nonsustained ventricular tachycardia as well as PAT. She has had previous impaired cardiac systolic function in the setting of sepsis with an EF as low as 25%, which returned toward normal by echo as of 11/2010. PHYSICAL EXAMINATION: GENERAL: A pleasant 75-year-old white female. VITAL SIGNS: Admission blood pressure 89/50, pulse 106 at that time and regular, respirations 18. Skin: No xanthelasmas. HEENT: She is normocephalic. There is no pallor. Sclerae white. NECK: JVD is not elevated. CHEST: No crackles. CARDIAC: S1 normal, S2 physiologic. There is an S4. ABDOMEN: Soft. EXTREMITIES: Without edema. Pulses are +2 and symmetric. NEUROLOGIC: No focal deficits. MUSCULOSKELETAL: Moderate kyphosis. LABORATORY DATA: She was on admission Hemoccult positive. As mentioned, she had a prolonged QT interval on her initial ECG. 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 Laboratory studies were ordered. The patient's BUN is 19, creatinine 0.61, total protein is low at 4.9, LFTs are normal. Total cholesterol is 96, HDL 36, LDL 45. Cardiac enzymes are negative. Iron is low at 32 with an iron saturation of 14. Folate was low at 3.8. B12 was on the lower side of normal at 320. BNP 42.9. Initial hemoglobin is 7.8. IMPRESSION: 1. Syncope, which may be multifactorial given her GI bleed, admitting hypotension, and underlying tendency to tachycardia. 2. Polymorphic nonsustained ventricular tachycardia of uncertain etiology. She has several medications that may contribute to this, including her flecainide and her amitriptyline, she also is on Benadryl and gabapentin, although these should have nominal effects on cardiac conduction. PLAN: Her flecainide has been decreased. The majority of her events occurred on 07/16. I will review her chart in the office and see and try to determine whether or not further invasive studies are appropriate. The majority of this may be due to the interaction of several medications and QT prolongation. Further recommendations forthcoming. KENDRA/JEROME Consultation Report [address] [place]. [address] NAME: MIREYA JALLOH : 40 STATUS : ADM IN PAT#: [id number] AGE: 75 ADM/REG DATE : 07/11/16 MR#: [id number] REPORT SERV DATE: 07/17/16 DICTATED BY: BETO ROJAS DATE: 07/17/16 REPORT STATUS : Draft TRANSCRIBED BY: JEROME DATE: 07/17/16 Beto Rojas M.D. / [id number] CC: Thiago De La Rosa, [facility]
[2016-07-11 15:50] LABS: BASOPHILS 0.2 %; BASOPHILS ABSOLUTE 0.01 10/3/uL (0.0-0.16); EOSINOPHILS 0.5 %; EOSINOPHILS ABSOLUTE 0.02 10/3/uL (0.0-0.53); ER CBC TAT 0 Hrs 07 Mins; IMMATURE GRANULOCYTES 0.2 %; IMMATURE GRANULOCYTES ABSOLUTE 0.01 10/3/uL (0.0-0.11); LYMPHOCYTES 17.1 %; LYMPHOCYTES ABSOLUTE 0.74 10/3/uL (0.67-4.30); MEAN CORPUS HGB CONC 29.3 g/dL (32.0-36.0); MEAN CORPUSCULAR HEMOGLOB 24.3 pg (26.0-34.0); MEAN PLATELET VOLUME 8.7 fL (9.2-13.0); MONOCYTES 8.3 %; MONOCYTES ABSOLUTE 0.36 10/3/uL (0.21-1.20); NEUTROPHILS 73.7 %; PLATELET COUNT 252 10/3/uL (150-400); RBC DISTRIBUTION WIDTH 17.1 % (12.0-16.0); WHITE BLOOD CELLS 4.3 10/3/uL (4.5-10.5)
[2016-07-11 15:51] LABS: HEMATOCRIT 19.1 % (36.0-48.0); HEMOGLOBIN 5.6 g/dL (12.0-16.0)
[2016-07-11 15:52] LABS: MANUAL DIFF NO %
[2016-07-11 16:06] LABS: A/G RATIO 0.9 (0.7-1.9); ALBUMIN 2.4 G/DL (3.5-5.0); CALCIUM, SERUM 7.9 MG/DL (8.5-10.4); CHLORIDE, SERUM 102 MMOL/L (96-112); CO2 (CARBON DIOXIDE) 29 MMOL/L (24-34); CREATININE 0.49 MG/DL (0.55-1.02); GFR AFRICAN AMERICAN 110 ML/MIN (>=60); GFR NON AFRICAN AMERICAN 95 ML/MIN (>=60); GLOBULIN 2.6 G/DL (2.5-4.1); GLUCOSE, SERUM 94 MG/DL (60-99); POTASSIUM, SERUM 4.4 MMOL/L (3.5-5.3); SGOT(AST) 10 U/L (5-40); SGPT(ALT) 19 U/L (5-65); SODIUM, SERUM 138 MMOL/L (135-148); TOTAL BILIRUBIN 0.1 MG/DL (0-1.2)
[2016-07-11 16:07] LABS: ALKALINE PHOSPHATASE 157 U/L (45-117); BUN (BLOOD UREA NITROGEN) 21 MG/DL (6-23); LACTATE 0.9 MMOL/L (0.3-2.4)
[~2016-07-11 16:32] MED LIST: *UNABLE2; ACIDOPHILU1 PO; ALEVE220 MG PO; AMB10 PO; AMB5 PO; AMIT50 PO; ASAB PO; ASABAYER PO; BENTYL10 PO; CALTRA600D PO; CHERATUSSIN OR; DIL2TAB PO; DORYX100 MG PO; DSS PO; FIBERCON PO; FLECAINIDE100 MG PO; FLONASE NAS; HALF81 PO; KLOR-CON 1010 MEQ PO; L20 PO; LEVAQ250; LIDODERM T; LIDODERM TOP; LIOR10 PO; LOM PO; LOP50 PO; LYRICA25 PO; MIRALAXPKT PO; MONODOX100 MG PO; MSCONT100 PO; MSCONT60 PO; MULTIPLE VIT PO; MVI PO; NAP500 PO; NEUR300 PO; NEUR400; NEUR600 PO; NEUR800 PO; NORCO1 TAB PO; OXYCOD PO; P10; PCET PO; PERCOCET1 TA4 PO; PERCODAN PO; PR25 PO; PRENAVITE PO; PRILO PO; PRIN5 PO; PROAIR HFA INH; PROTONIX PO; RESTASIS OPH; SENTAB PO; SEROQUEL1C PO; SINGULAIR1 PO; SOMA; SOMATAB PO; SUCR PO; TAMBO50 PO; TUMSROLL PO; V5 PO; VALIUM10 MG PO; VENTOLIN HFA INH; VITAMIN D OTC PO; VITAMIN D1000 UNI1 PO; VITE1000 PO; XPECT400 MG PO; ZANAFLEX 4 MG TA4 MG PO; ZITH250 PO; ZOFRAN4 PO; ZYRTEC ALLGY10 MG PO
[2016-07-11] MEDS ORDERED: SUCR PO (16:43)
[2016-07-11] MEDS ORDERED: FLECAINIDE100 MG PO (16:43)
[2016-07-11] MEDS ORDERED: NEUR400 PO (16:43)
[2016-07-11] MEDS ORDERED: KLONO5 PO (16:44)
[2016-07-11] MEDS ORDERED: NOR75 PO (16:44)
[2016-07-11] MEDS ORDERED: PROAIR HFA INH (16:44)
[2016-07-11] MEDS ORDERED: PROTONIX PO (16:44)
[2016-07-11] MEDS ORDERED: LIDODERM TOP (16:45)
[2016-07-11] MEDS ORDERED: BEN25 PO (16:45)
[2016-07-11 17:08] LABS: PROCALCITONIN <0.05 ng/mL (<0.5)
[2016-07-11 17:21] LABS: ASCORBIC ACID (UR NOT ORDER) 20 (NEG); BILIRUBIN, URINE NEGATIVE (NEG); ER URINALYSIS TAT 0 Hrs 08 Mins; KETONE, URINE NEGATIVE (NEG); LEUKOCYTE ESTERASE(NOT OR SMALL (NEG); NITRITE (URINE) NEG (NEG); WBC (NOT ORDERED) (RFLEX) 1 (0-5)
[2016-07-12 02:18] LABS: ACETAMINOPHEN LEVEL (TYLENOL) 5.3 MCG/ML (10.0-20.0); CHOL/HDL RATIO(NOT ORDER) 2.7 (0-5); CHOLESTEROL 96 MG/DL (< 200); FOLATE 3.8 NG/ML (>5.2); HDL CHOLESTEROL 36 MG/DL (> 49); LDL CHOLESTEROL 45 MG/DL (< 130); NON-HDL CHOLESTEROL 60 MG/DL (< 160); PHOSPHORUS, SERUM 4.5 MG/DL (2.5-4.5); TRIGLYCERIDE 76 MG/DL (< 150)
[2016-07-12 02:19] LABS: ALCOHOL < 10 MG/DL (0); SALICYLATE < 1.7 MG/DL (-)
[2016-07-12 12:15] LABS: PHENCYCLIDINE(PCP) NEG (NEG)
[2016-07-12 12:16] LABS: AMPHETAMINES (NOT ORD) NEG (NEG); BARBITURATES (NOT ORDERED NEG (NEG); BENZODIAZEPINES (NOT ORD) NEG (NEG); CANNABINOIDS (THC) POS (NEG); COCAINE (NOT ORDERED) NEG (NEG); OPIATES NEG (NEG); TRICYCLICS POS (NEG)
[2016-07-12 13:11] LABS: BASOPHILS 0.5 %; BASOPHILS ABSOLUTE 0.02 10/3/uL (0.0-0.16); EOSINOPHILS 1.4 %; EOSINOPHILS ABSOLUTE 0.06 10/3/uL (0.0-0.53); IMMATURE GRANULOCYTES 0.2 %; IMMATURE GRANULOCYTES ABSOLUTE 0.01 10/3/uL (0.0-0.11); LYMPHOCYTES 18.6 %; MEAN CORPUSCULAR HEMOGLOB 26.3 pg (26.0-34.0); MEAN CORPUSCULAR VOLUME 82.8 fL (80-100); MEAN PLATELET VOLUME 8.4 fL (9.2-13.0); MONOCYTES 7.9 %; MONOCYTES ABSOLUTE 0.34 10/3/uL (0.21-1.20); NEUTROPHILS 71.4 %; NEUTROPHILS ABSOLUTE 3.06 10/3/uL (2.02-8.40); PLATELET COUNT 220 10/3/uL (150-400); RBC DISTRIBUTION WIDTH 15.6 % (12.0-16.0); WHITE BLOOD CELLS 4.3 10/3/uL (4.5-10.5)
[2016-07-12 13:12] LABS: HEMATOCRIT 27.4 % (36.0-48.0); HEMOGLOBIN 8.7 g/dL (12.0-16.0); MANUAL DIFF NO %; MEAN CORPUS HGB CONC 31.8 g/dL (32.0-36.0); RED CELL COUNT 3.31 10/6/uL (4.0-5.6)
[2016-07-12 13:29] LABS: A/G RATIO 0.9 (0.7-1.9); ALBUMIN 2.3 G/DL (3.5-5.0); ALKALINE PHOSPHATASE 174 U/L (45-117); BUN (BLOOD UREA NITROGEN) 15 MG/DL (6-23); CALCIUM, SERUM 7.6 MG/DL (8.5-10.4); CHLORIDE, SERUM 104 MMOL/L (96-112); CO2 (CARBON DIOXIDE) 28 MMOL/L (24-34); CPK 37 U/L (0-200); CREATININE 0.44 MG/DL (0.55-1.02); GFR AFRICAN AMERICAN 114 ML/MIN (>=60); GFR NON AFRICAN AMERICAN 99 ML/MIN (>=60); GLOBULIN 2.6 G/DL (2.5-4.1); GLUCOSE, SERUM 81 MG/DL (60-99); POTASSIUM, SERUM 4.1 MMOL/L (3.5-5.3); SGOT(AST) 12 U/L (5-40); SGPT(ALT) 16 U/L (5-65); SODIUM, SERUM 140 MMOL/L (135-148); TOTAL BILIRUBIN 0.5 MG/DL (0-1.2); TOTAL PROTEIN 4.9 G/DL (6.0-8.5); TROPONIN I <0.02 NG/ML (<0.05)
[2016-07-12 19:04] LABS: HEMATOCRIT 27.3 % (36.0-48.0); HEMOGLOBIN 8.6 g/dL (12.0-16.0)
[2016-07-13 00:24] LABS: HEMATOCRIT 27.3 % (36.0-48.0); HEMOGLOBIN 8.8 g/dL (12.0-16.0)
[2016-07-13 03:44] LABS: BASOPHILS 0.1 %; BASOPHILS ABSOLUTE 0.01 10/3/uL (0.0-0.16); HEMATOCRIT 28.6 % (36.0-48.0); IMMATURE GRANULOCYTES 0.2 %; IMMATURE GRANULOCYTES ABSOLUTE 0.02 10/3/uL (0.0-0.11); LYMPHOCYTES 8.3 %; MEAN CORPUS HGB CONC 31.5 g/dL (32.0-36.0); MEAN CORPUSCULAR HEMOGLOB 26.5 pg (26.0-34.0); MEAN CORPUSCULAR VOLUME 84.4 fL (80-100); MEAN PLATELET VOLUME 8.7 fL (9.2-13.0); MONOCYTES 6.5 %; MONOCYTES ABSOLUTE 0.63 10/3/uL (0.21-1.20); NEUTROPHILS 83.9 %; NEUTROPHILS ABSOLUTE 8.11 10/3/uL (2.02-8.40); PLATELET COUNT 215 10/3/uL (150-400); RBC DISTRIBUTION WIDTH 15.9 % (12.0-16.0); RED CELL COUNT 3.39 10/6/uL (4.0-5.6)
[2016-07-13 03:46] LABS: MANUAL DIFF NO %; WHITE BLOOD CELLS 9.7 10/3/uL (4.5-10.5)
[2016-07-13 03:52] LABS: INTERNATIONAL NORMAL RATI 1.1 UNITS (-)
[2016-07-13 03:57] LABS: BUN (BLOOD UREA NITROGEN) 13 MG/DL (6-23); CALCIUM, SERUM 7.7 MG/DL (8.5-10.4); CHLORIDE, SERUM 106 MMOL/L (96-112); CO2 (CARBON DIOXIDE) 26 MMOL/L (24-34); CREATININE 0.45 MG/DL (0.55-1.02); GFR AFRICAN AMERICAN 114 ML/MIN (>=60); GFR NON AFRICAN AMERICAN 98 ML/MIN (>=60); GLUCOSE, SERUM 86 MG/DL (60-99); SODIUM, SERUM 138 MMOL/L (135-148)
[2016-07-13 04:13] LABS: POTASSIUM, SERUM 5.9 MMOL/L (3.5-5.3)
[2016-07-13 05:22] LABS: TROPONIN I <0.02 NG/ML (<0.05)
[2016-07-13 06:33] LABS: BUN (BLOOD UREA NITROGEN) 11 MG/DL (6-23); CALCIUM, SERUM 7.5 MG/DL (8.5-10.4); CHLORIDE, SERUM 108 MMOL/L (96-112); CO2 (CARBON DIOXIDE) 26 MMOL/L (24-34); CREATININE 0.49 MG/DL (0.55-1.02); GFR AFRICAN AMERICAN 110 ML/MIN (>=60); GFR NON AFRICAN AMERICAN 95 ML/MIN (>=60); GLUCOSE, SERUM 85 MG/DL (60-99); SODIUM, SERUM 143 MMOL/L (135-148)
[2016-07-13 14:52] LABS: HEMOGLOBIN 7.8 g/dL (12.0-16.0)
[2016-07-13 14:54] LABS: HEMATOCRIT 25.6 % (36.0-48.0)
[2016-07-13 16:58] LABS: HEMATOCRIT 26.2 % (36.0-48.0)
[2016-07-13 23:02] LABS: HEMATOCRIT 26.9 % (36.0-48.0); HEMOGLOBIN 8.2 g/dL (12.0-16.0)
[2016-07-14 05:39] LABS: BASOPHILS 0.2 %; BASOPHILS ABSOLUTE 0.01 10/3/uL (0.0-0.16); EOSINOPHILS 1.7 %; EOSINOPHILS ABSOLUTE 0.08 10/3/uL (0.0-0.53); HEMATOCRIT 25.9 % (36.0-48.0); HEMOGLOBIN 7.8 g/dL (12.0-16.0); LYMPHOCYTES 15.7 %; LYMPHOCYTES ABSOLUTE 0.73 10/3/uL (0.67-4.30); MEAN CORPUS HGB CONC 30.1 g/dL (32.0-36.0); MEAN CORPUSCULAR HEMOGLOB 26.2 pg (26.0-34.0); MEAN CORPUSCULAR VOLUME 86.9 fL (80-100); MONOCYTES 10.3 %; MONOCYTES ABSOLUTE 0.48 10/3/uL (0.21-1.20); NEUTROPHILS 72.1 %; NEUTROPHILS ABSOLUTE 3.34 10/3/uL (2.02-8.40); PLATELET COUNT 167 10/3/uL (150-400); RBC DISTRIBUTION WIDTH 16.8 % (12.0-16.0); RED CELL COUNT 2.98 10/6/uL (4.0-5.6)
[2016-07-14 05:42] LABS: MANUAL DIFF NO %; WHITE BLOOD CELLS 4.6 10/3/uL (4.5-10.5)
[2016-07-15 05:46] LABS: BUN (BLOOD UREA NITROGEN) 9 MG/DL (6-23); CALCIUM, SERUM 8.2 MG/DL (8.5-10.4); CHLORIDE, SERUM 101 MMOL/L (96-112); CO2 (CARBON DIOXIDE) 23 MMOL/L (24-34); GFR AFRICAN AMERICAN 103 ML/MIN (>=60); GFR NON AFRICAN AMERICAN 89 ML/MIN (>=60); POTASSIUM, SERUM 4.4 MMOL/L (3.5-5.3)
[2016-07-15 05:48] LABS: GLUCOSE, SERUM 124 MG/DL (60-99); SODIUM, SERUM 133 MMOL/L (135-148)
[2016-07-15 05:50] LABS: BASOPHILS 0.1 %; BASOPHILS ABSOLUTE 0.01 10/3/uL (0.0-0.16); EOSINOPHILS 0.7 %; EOSINOPHILS ABSOLUTE 0.06 10/3/uL (0.0-0.53); IMMATURE GRANULOCYTES 0.2 %; IMMATURE GRANULOCYTES ABSOLUTE 0.02 10/3/uL (0.0-0.11); LYMPHOCYTES 8.6 %; LYMPHOCYTES ABSOLUTE 0.74 10/3/uL (0.67-4.30); MEAN CORPUSCULAR HEMOGLOB 26.9 pg (26.0-34.0); MEAN CORPUSCULAR VOLUME 84.6 fL (80-100); MONOCYTES 4.6 %; NEUTROPHILS 85.8 %; NEUTROPHILS ABSOLUTE 7.38 10/3/uL (2.02-8.40); RBC DISTRIBUTION WIDTH 16.3 % (12.0-16.0)
[2016-07-15 06:04] LABS: HEMOGLOBIN 10.5 g/dL (12.0-16.0); MANUAL DIFF NO %; MEAN CORPUS HGB CONC 31.8 g/dL (32.0-36.0); PLATELET COUNT 223 10/3/uL (150-400); WHITE BLOOD CELLS 8.6 10/3/uL (4.5-10.5)
[2016-07-16 06:52] LABS: BASOPHILS 0.1 %; BASOPHILS ABSOLUTE 0.01 10/3/uL (0.0-0.16); EOSINOPHILS 0.5 %; EOSINOPHILS ABSOLUTE 0.04 10/3/uL (0.0-0.53); HEMOGLOBIN 10.5 g/dL (12.0-16.0); IMMATURE GRANULOCYTES 0.2 %; IMMATURE GRANULOCYTES ABSOLUTE 0.02 10/3/uL (0.0-0.11); LYMPHOCYTES 14.2 %; LYMPHOCYTES ABSOLUTE 1.22 10/3/uL (0.67-4.30); MEAN CORPUS HGB CONC 32.8 g/dL (32.0-36.0); MEAN CORPUSCULAR HEMOGLOB 26.6 pg (26.0-34.0); MEAN PLATELET VOLUME 8.6 fL (9.2-13.0); MONOCYTES 8.6 %; MONOCYTES ABSOLUTE 0.74 10/3/uL (0.21-1.20); NEUTROPHILS 76.4 %; NEUTROPHILS ABSOLUTE 6.58 10/3/uL (2.02-8.40); PLATELET COUNT 206 10/3/uL (150-400); RBC DISTRIBUTION WIDTH 16.8 % (12.0-16.0); RED CELL COUNT 3.95 10/6/uL (4.0-5.6); WHITE BLOOD CELLS 8.6 10/3/uL (4.5-10.5)
[2016-07-16 06:53] LABS: MANUAL DIFF NO %
[2016-07-16 07:03] LABS: BUN (BLOOD UREA NITROGEN) 15 MG/DL (6-23); CALCIUM, SERUM 7.7 MG/DL (8.5-10.4); CHLORIDE, SERUM 96 MMOL/L (96-112); CO2 (CARBON DIOXIDE) 25 MMOL/L (24-34); CREATININE 0.67 MG/DL (0.55-1.02); GFR AFRICAN AMERICAN 100 ML/MIN (>=60); GFR NON AFRICAN AMERICAN 86 ML/MIN (>=60); GLUCOSE, SERUM 98 MG/DL (60-99); POTASSIUM, SERUM 3.9 MMOL/L (3.5-5.3); SODIUM, SERUM 131 MMOL/L (135-148)
[2016-07-17 06:52] LABS: BASOPHILS 0.2 %; BASOPHILS ABSOLUTE 0.01 10/3/uL (0.0-0.16); EOSINOPHILS ABSOLUTE 0.05 10/3/uL (0.0-0.53); HEMOGLOBIN 9.2 g/dL (12.0-16.0); IMMATURE GRANULOCYTES 0.2 %; IMMATURE GRANULOCYTES ABSOLUTE 0.01 10/3/uL (0.0-0.11); LYMPHOCYTES 19.2 %; LYMPHOCYTES ABSOLUTE 0.97 10/3/uL (0.67-4.30); MEAN CORPUS HGB CONC 31.7 g/dL (32.0-36.0); MEAN CORPUSCULAR HEMOGLOB 26.5 pg (26.0-34.0); MEAN PLATELET VOLUME 8.9 fL (9.2-13.0); MONOCYTES ABSOLUTE 0.66 10/3/uL (0.21-1.20); NEUTROPHILS 66.4 %; NEUTROPHILS ABSOLUTE 3.36 10/3/uL (2.02-8.40); PLATELET COUNT 155 10/3/uL (150-400); RBC DISTRIBUTION WIDTH 16.7 % (12.0-16.0); RED CELL COUNT 3.47 10/6/uL (4.0-5.6)
[2016-07-17 06:54] LABS: MANUAL DIFF NO %; MEAN CORPUSCULAR VOLUME 83.6 fL (80-100); WHITE BLOOD CELLS 5.1 10/3/uL (4.5-10.5)
[2016-07-17 08:48] LABS: BUN (BLOOD UREA NITROGEN) 19 MG/DL (6-23); CALCIUM, SERUM 8.4 MG/DL (8.5-10.4); CHLORIDE, SERUM 100 MMOL/L (96-112); CO2 (CARBON DIOXIDE) 26 MMOL/L (24-34); CREATININE 0.61 MG/DL (0.55-1.02); GFR AFRICAN AMERICAN 103 ML/MIN (>=60); GFR NON AFRICAN AMERICAN 89 ML/MIN (>=60); GLUCOSE, SERUM 101 MG/DL (60-99); SODIUM, SERUM 134 MMOL/L (135-148)
[2016-07-18 05:42] LABS: BASOPHILS 0.2 %; BASOPHILS ABSOLUTE 0.01 10/3/uL (0.0-0.16); EOSINOPHILS 0.8 %; EOSINOPHILS ABSOLUTE 0.05 10/3/uL (0.0-0.53); HEMATOCRIT 28.2 % (36.0-48.0); LYMPHOCYTES 18.2 %; MEAN CORPUS HGB CONC 31.9 g/dL (32.0-36.0); MEAN CORPUSCULAR HEMOGLOB 26.6 pg (26.0-34.0); MEAN CORPUSCULAR VOLUME 83.4 fL (80-100); MONOCYTES 11.2 %; MONOCYTES ABSOLUTE 0.74 10/3/uL (0.21-1.20); NEUTROPHILS 69.6 %; NEUTROPHILS ABSOLUTE 4.59 10/3/uL (2.02-8.40); PLATELET COUNT 164 10/3/uL (150-400); RBC DISTRIBUTION WIDTH 16.5 % (12.0-16.0); RED CELL COUNT 3.38 10/6/uL (4.0-5.6); WHITE BLOOD CELLS 6.6 10/3/uL (4.5-10.5)
[2016-07-18 05:44] LABS: MANUAL DIFF NO %
[2016-07-18 05:52] LABS: CALCIUM, SERUM 7.6 MG/DL (8.5-10.4); CHLORIDE, SERUM 100 MMOL/L (96-112); CO2 (CARBON DIOXIDE) 25 MMOL/L (24-34); CREATININE 0.52 MG/DL (0.55-1.02); GFR AFRICAN AMERICAN 108 ML/MIN (>=60); GFR NON AFRICAN AMERICAN 93 ML/MIN (>=60); GLUCOSE, SERUM 95 MG/DL (60-99); POTASSIUM, SERUM 3.8 MMOL/L (3.5-5.3); SODIUM, SERUM 135 MMOL/L (135-148)
[2016-07-18 05:54] LABS: BUN (BLOOD UREA NITROGEN) 14 MG/DL (6-23)
[2016-07-18 10:40] LABS: FERRITIN 21 NG/ML (8-252)
[2016-07-19 05:31] LABS: BASOPHILS 0.6 %; BASOPHILS ABSOLUTE 0.02 10/3/uL (0.0-0.16); EOSINOPHILS 2.5 %; EOSINOPHILS ABSOLUTE 0.08 10/3/uL (0.0-0.53); HEMATOCRIT 27.1 % (36.0-48.0); HEMOGLOBIN 8.5 g/dL (12.0-16.0); LYMPHOCYTES 34.6 %; LYMPHOCYTES ABSOLUTE 1.09 10/3/uL (0.67-4.30); MEAN CORPUS HGB CONC 31.4 g/dL (32.0-36.0); MEAN CORPUSCULAR HEMOGLOB 26.3 pg (26.0-34.0); MEAN CORPUSCULAR VOLUME 83.9 fL (80-100); MEAN PLATELET VOLUME 8.7 fL (9.2-13.0); MONOCYTES ABSOLUTE 0.44 10/3/uL (0.21-1.20); NEUTROPHILS 48.3 %; NEUTROPHILS ABSOLUTE 1.52 10/3/uL (2.02-8.40); PLATELET COUNT 144 10/3/uL (150-400); RBC DISTRIBUTION WIDTH 16.5 % (12.0-16.0); RED CELL COUNT 3.23 10/6/uL (4.0-5.6)
[2016-07-19 05:32] LABS: MANUAL DIFF NO %; WHITE BLOOD CELLS 3.2 10/3/uL (4.5-10.5)
[2016-07-19 05:44] LABS: BUN (BLOOD UREA NITROGEN) 16 MG/DL (6-23); CALCIUM, SERUM 7.7 MG/DL (8.5-10.4); CHLORIDE, SERUM 102 MMOL/L (96-112); CO2 (CARBON DIOXIDE) 27 MMOL/L (24-34); GFR AFRICAN AMERICAN 110 ML/MIN (>=60); GFR NON AFRICAN AMERICAN 95 ML/MIN (>=60); GLUCOSE, SERUM 87 MG/DL (60-99); SODIUM, SERUM 137 MMOL/L (135-148)
[2016-07-19] MEDS ORDERED: LOP25 PO (16:13)
[2016-07-19] MEDS ORDERED: T PO (16:16)
[2016-07-19] MEDS ORDERED: MELA3 PO (16:19)
[2016-07-19] MEDS ORDERED: NORCO1 TA2 PO (16:19)
[2016-07-19] MEDS ORDERED: SENTAB PO (16:21)
[2016-07-19] MEDS ORDERED: FOLIC PO (16:23)
[2016-07-19] MEDS ORDERED: VITAMIN B-121000 MC1 SL (16:25)
[2016-12-02] MEDS ORDERED: NEUR600 PO (19:23)
[2016-12-05] MEDS ORDERED: LEXAPRO10 PO (16:31)
[2017-01-21] MEDS ORDERED: RESTASIS OPH (17:55)
[2017-01-26] MEDS ORDERED: MELA3 PO (19:32)
[2017-01-26] MEDS ORDERED: SENTAB PO ×2 (19:33→19:34)
[2017-01-26] MEDS ORDERED: REG5 PO (19:33)
[2017-01-26] MEDS ORDERED: NORCO1 TA2 PO (19:36)
[2017-01-26] MEDS ORDERED: ZOFRAN4 PO (19:38)
[2017-01-26] MEDS ORDERED: MIRALAX POWDER1 PKT PO (19:38)
== END 2016-07-19 19:32 | disposition home or self-care (01) | DRG 982 ==
LOC: ER 16:32 → 2SO 21:21 → 1SO 21:44
PROVIDERS: Emergency Medicine; Hospitalist; Student in an Organized Health Care Education/Training Program
PROC: 30233N1 Transfusion of Nonautologous Red Blood Cells into Peripheral Vein, Percutaneous Approach (ICD-10-PCS; 2016-07-11)
PROC: 0DJ08ZZ Inspection of Upper Intestinal Tract, Via Natural or Artificial Opening Endoscopic (ICD-10-PCS; 2016-07-13)
PROC: 0DJD8ZZ Inspection of Lower Intestinal Tract, Via Natural or Artificial Opening Endoscopic (ICD-10-PCS; 2016-07-14)
PROC: 0JH632Z Insertion of Monitoring Device into Chest Subcutaneous Tissue and Fascia, Percutaneous Approach (ICD-10-PCS; principal; 2016-07-18)
DX: K28.4 Chronic or unspecified gastrojejunal ulcer with hemorrhage (principal); D62 Acute posthemorrhagic anemia; I47.2 Ventricular tachycardia; F11.20 Opioid dependence, uncomplicated; F19.20 Other psychoactive substance dependence, uncomplicated; I95.89 Other hypotension; I48.0 Paroxysmal atrial fibrillation; D69.6 Thrombocytopenia, unspecified; E86.0 Dehydration; M41.9 Scoliosis, unspecified; Z90.3 Acquired absence of stomach [part of]; G89.29 Other chronic pain; R33.9 Retention of urine, unspecified; I73.9 Peripheral vascular disease, unspecified; K21.0 Gastro-esophageal reflux disease with esophagitis; I25.10 Atherosclerotic heart disease of native coronary artery without angina pectoris; M54.9 Dorsalgia, unspecified; K59.09 Other constipation; F41.9 Anxiety disorder, unspecified; R29.6 Repeated falls; I25.2 Old myocardial infarction; Z91.81 History of falling; Z87.891 Personal history of nicotine dependence; Z87.11 Personal history of peptic ulcer disease; Z90.49 Acquired absence of other specified parts of digestive tract; Z98.0 Intestinal bypass and anastomosis status; Z88.2 Allergy status to sulfonamides; Z88.8 Allergy status to other drugs, medicaments and biological substances
CPT/HCPCS: 33282; 36415; 70450; 71010; 74000; 80048; 80053; 80061; 80305; 80307; 81001; 82306; 82550; 82607; 82728; 82746; 83036; 83605; 83735; 84100; 84145; 84484; 85014; 85018; 85025; 85610; 86850; 86900; 86901; 86920; 87086; 92610-GN; 93005; 93306; 96365; 97110-GP; 97116-GP; 97161-GP; 97166-GO; 99291; A9270-GY; C1764; C9113; G8978-CK-GP; G8979-CI-GP; G8987-CJ-GO; G8988-CJ-GO; G8989-CJ-GO; G8996-CI-GN; G8997-CI-GN; G8998-CI-GN; J0690; J2250; J2405; J2916; J3010; P9016